=== PATIENT | female | born 1995 | race Caucasian/White ===

== ENCOUNTER 2021-04-24 00:16 | Emergency (ER) | payer BC ==
[2021-04-24 00:48] VITALS: BP 141/111; PULSE 118; RESP 20; TEMP 98.6
--- NOTE | 2021-04-24 01:26 | XR ---
EXAMINATION TYPE: XR soft tissue neck DATE OF EXAM: 04/24/2021 COMPARISON: NONE HISTORY: Foreign body TECHNIQUE: 2 view FINDINGS: Cervical vertebrae abnormal alignment. Tonsils and adenoids appear normal. Subglottic trach ea appears normal. Epiglottis is normal. There is no sign of radiopaque foreign body. Prevertebral so ft tissues appear normal. IMPRESSION: Negative cervical soft tissue exam.
[2021-04-24] MEDS ORDERED: ONDANSETRON ODT 4 MG TAB PO STA (01:59)
[2021-04-24] MEDS ORDERED: LORazepam 1 MG TAB PO STA (01:59)
[2021-04-24] MEDS ORDERED: MAG HYDROX/AL HYDROX/SIMETH 30 ML, HYOSCYAMINE ELIXIR 10 ML, LIDOCAINE VISCOUS 2% 10 ML PO STA ×3 (01:59)
--- NOTE | 2021-04-24 02:22 | XR ---
EXAMINATION TYPE: XR chest 1V portable DATE OF EXAM: 04/24/2021 COMPARISON: NONE HISTORY: Chest pain TECHNIQUE: FINDINGS: Heart and mediastinum are normal. Lungs are clear. Diaphragm is normal. Bony thorax is intact. IMPRESSION: Normal chest
--- NOTE | 2021-04-24 02:36 | ED ---
ENT HPI - General Chief complaint: ENT Stated complaint: Something caught in throat Time Seen by Provider: 04/24/21 01:46 Source: patient, RN notes reviewed, old records reviewed Mode of arrival: ambulatory Limitations: no limitations - History of Present Illness Initial comments: This is a 25-year-old female to the emergency department for evaluation. Patient believes she does have foreign body not eating carrots day and a half ago patient felt something stuck. She was she goes to bed. Patient has no other medical history takes no medications and is able to eat and drink for the last 2 days as well. MD complaint: foreign body -: days(s) (2) Severity: mild Severity scale (1-10): 2 Quality: aching Consistency: constant Improves with: none Worsens with: none Associated Symptoms: pain with swallowing, sore throat - Related Data Allergies Allergy/AdvReac Type Severity Reaction Status Date / Time No Known Allergies Allergy Verified 04/24/21 00:48 Review of Systems ROS Statement: Those systems with pertinent positive or pertinent negative responses have been documented in the HPI. ROS Other: All systems not noted in ROS Statement are negative. Past Medical History Past Medical History: No Reported History History of Any Multi-Drug Resistant Organisms: None Reported Past Surgical History: No Surgical Hx Reported Past Psychological History: No Psychological Hx Reported Smoking Status: Never smoker Past Alcohol Use History: None Reported Past Drug Use History: None Reported General Exam Limitations: no limitations General appearance: alert, in no apparent distress, anxious Head exam: Present: atraumatic, normocephalic, normal inspection Eye exam: Present: normal appearance, PERRL, EOMI. Absent: scleral icterus, conjunctival injection, periorbital swelling ENT exam: Present: normal exam, mucous membranes moist Neck exam: Present: normal inspection. Absent: tenderness, meningismus, lymphadenopathy Respiratory exam: Present: normal lung sounds bilaterally. Absent: respiratory distress, wheezes, rales, rhonchi, stridor Cardiovascular Exam: Present: regular rate, normal rhythm, normal heart sounds. Absent: systolic murmur, diastolic murmur, rubs, gallop, clicks GI/Abdominal exam: Present: soft, normal bowel sounds. Absent: distended, tenderness, guarding, rebound, rigid Extremities exam: Present: normal inspection, full ROM, normal capillary refill. Absent: tenderness, pedal edema, joint swelling, calf tenderness Back exam: Present: normal inspection Neurological exam: Present: alert, oriented X3, CN II-XII intact Psychiatric exam: Present: normal affect, normal mood Skin exam: Present: warm, dry, intact, normal color. Absent: rash Course Vital Signs 04/24/21 00:45 Temperature 98.6 F Pulse Rate 118 H Respiratory 20 Rate Blood Pressure 141/111 O2 Sat by Pulse 96 Oximetry - Reevaluation(s) Reevaluation #1: 04/24/21 02:58 Medical records reviewed Reevaluation #2: 04/24/21 02:58 Patient symptoms are significantly improved Reevaluation #3: 04/24/21 02:58 For results and questions answered Medical Decision Making - Medical Decision Making 25 female DF esophageal foreign body patient's able to eat and drink in the ER with normal x-rays. Patient can be discharged home - Radiology Data Radiology results: report reviewed (Chest x-ray soft tissue neck x-rays negative for acute disease), image reviewed Disposition Clinical Impression: Esophageal foreign body Disposition: HOME SELF-CARE Condition: Good Instructions (If sedation given, give patient instructions): Esophageal Foreign Body (ED) Is patient prescribed a controlled substance at d/c from ED?: No Referrals: Kobe Herman DO [Primary Care Provider] - 1-2 days
== END 2021-04-24 03:20 | disposition home or self-care (01) ==
LOC: EC 00:16
DX: T18.108A Unspecified foreign body in esophagus causing other injury, initial encounter (principal); X58.XXXA Exposure to other specified factors, initial encounter
CPT/HCPCS: 70360; 71045; 99283